=== PATIENT | female | born 1975 | race Caucasian/White ===

== ENCOUNTER 2017-04-09 18:41 | Emergency (ER) | payer BC ==
[~2017-04-09] VITALS: Ht 162.6 cm; Wt 91.4 kg
[~2017-04-09 18:41] MED LIST: IMODIUM MS REL1 EACH PO; ZOFRAN4 MG PO
[2017-04-09 19:48] LABS: HEMATOCRIT 40.8 % (36.0-46.0); MCH 28.9 PG (29.0-34.0); MCHC 34.3 G/DL (30.0-36.0); MCV 84.3 FL (83-99); MEAN PLAT.VOLUME 10.3 uM^3 (9.5-12.4); PLATELET COUNT 135 K/uL (156-360); RBC DIS.WIDTH-CV 13.1 % (11.8-14.6); RBC DIS.WIDTH-SD 40.4 % (39-53); RED BLOOD COUNT 4.84 M/uL (3.80-5.20); WHITE BLOOD COUNT 4.5 K/uL (4.1-10.2)
[2017-04-09 19:59] LABS: CHLORIDE 104 mEq/L (99-109); POTASSIUM 3.6 mEq/L (3.7-5.4); SODIUM 135 mEq/L (136-147)
[2017-04-09 20:01] LABS: GLUCOSE 96 mg/dL (70-99)
[2017-04-09 20:02] LABS: ANION GAP 12 MEQ/L (2-14)
[2017-04-09 20:03] LABS: TOTAL BILIRUBIN 0.9 mg/dL (0.0-1.0)
[2017-04-09 20:04] LABS: ALKALINE PHOSPHATASE 83 IU/L (3-129)
[2017-04-09 20:05] LABS: GFR ESTIMATE (CALCULATED) > 59 mL/min/
[2017-04-09 20:06] LABS: UREA NITROGEN (BUN) 8 mg/dL (9-23)
[2017-04-09 20:14] LABS: QUANTITATIVE HCG < 4.0 MIU/ML
[2017-04-09 21:25] LABS: ADD MIUA? YES; BILIRUBIN NEGATIVE; BLOOD SMALL; COLOR YELLOW ((YELLOW)); GLUCOSE (STRIP) NEGATIVE; KETONES 5; LEUKOCYTES NEGATIVE; NITRITE NEGATIVE; PROTEIN (STRIP) NEGATIVE; SPECIFIC GRAVITY 1.005 (1.000-1.030); UROBILINOGEN 0.2 MG/DL (0.2-1.0)
[2017-04-09 21:49] LABS: BACTERIA RARE /HPF; EPITHELIAL CELLS 1+ /HPF; MUCUS NONE SEEN /LPF; RED BLOOD CELLS 0-5 /HPF (0-5); UCUL ADDED? NO; WHITE BLOOD CELLS 0-5 /HPF (0-5)
[2017-04-09] MEDS ORDERED: AUGMENTIN875 MG PO (22:27)
[2017-04-09] MEDS ORDERED: MOTRIN600 MG PO (22:27)
[2017-04-09 23:23] VITALS: BP 124/67
== END 2017-04-09 23:26 | disposition home or self-care (01) ==
LOC: EME 18:41 → RME 18:41
PROVIDERS: Physician Assistant
DX: E86.0 Dehydration (principal); H66.93 Otitis media, unspecified, bilateral
CPT/HCPCS: 71020; 80053; 81003; 83605; 84702; 85027; 87040; 99281; 99285; J0696; J1885; J7030; J7050

== ENCOUNTER 2017-04-11 09:55 | Emergency (ER) | payer BC ==
[~2017-04-11] VITALS: Ht 170.2 cm; Wt 91.4 kg
[~2017-04-11 09:55] MED LIST changes: +AUGMENTIN875 MG PO; +MOTRIN600 MG PO
[2017-04-11 11:45] LABS: ADD MIUA? YES; BILIRUBIN NEGATIVE; BLOOD SMALL; COLOR YELLOW ((YELLOW)); GLUCOSE (STRIP) NEGATIVE; KETONES NEGATIVE; LEUKOCYTES NEGATIVE; NITRITE NEGATIVE; PROTEIN (STRIP) NEGATIVE; SPECIFIC GRAVITY 1.005 (1.000-1.030)
[2017-04-11 11:49] LABS: BACTERIA RARE /HPF; EPITHELIAL CELLS RARE /HPF; MUCUS TRACE /LPF; RED BLOOD CELLS 0-5 /HPF (0-5); UCUL ADDED? NO; WHITE BLOOD CELLS 0-5 /HPF (0-5)
[2017-04-11 11:53] VITALS: BP 139/83
[2017-04-11 12:45] LABS: HEMATOCRIT 37.6 % (36.0-46.0); MCV 85.3 FL (83-99); MEAN PLAT.VOLUME 10.8 uM^3 (9.5-12.4); PLATELET COUNT 124 K/uL (156-360); RBC DIS.WIDTH-CV 13.4 % (11.8-14.6); RED BLOOD COUNT 4.41 M/uL (3.80-5.20); WHITE BLOOD COUNT 4.8 K/uL (4.1-10.2)
[2017-04-11 12:59] LABS: CHLORIDE 105 mEq/L (99-109); SODIUM 139 mEq/L (136-147)
[2017-04-11 13:01] LABS: GLUCOSE 96 mg/dL (70-99)
[2017-04-11 13:02] LABS: ANION GAP 12 MEQ/L (2-14)
[2017-04-11 13:04] LABS: ALKALINE PHOSPHATASE 79 IU/L (3-129)
[2017-04-11 13:05] LABS: GFR ESTIMATE (CALCULATED) > 59 mL/min/
[2017-04-11 13:06] LABS: UREA NITROGEN (BUN) 10 mg/dL (9-23)
[2017-04-11 13:21] LABS: POTASSIUM 4.4 mEq/L (3.7-5.4); TOTAL BILIRUBIN 1.1 mg/dL (0.0-1.0)
[2017-04-11] MEDS ORDERED: DOXYCYCLINE HY100 MG PO (14:02)
[2017-04-11] MEDS ORDERED: TRAMADOL HCL50 MG PO (14:02)
== END 2017-04-11 14:26 | disposition home or self-care (01) ==
LOC: EME 09:55
PROVIDERS: Nurse Practitioner Family
DX: R51 Headache (principal); J30.2 Other seasonal allergic rhinitis; M54.5 Low back pain; H53.8 Other visual disturbances; R42 Dizziness and giddiness; Z20.818 Contact with and (suspected) exposure to other bacterial communicable diseases
CPT/HCPCS: 70450; 80053; 81003; 85027; 86618; 99281; 99285; J1885

== ENCOUNTER → 2017-09-07 | Outpatient (CLI) | payer BC ==
[~2017-09-07] MED LIST changes: +DOXYCYCLINE HY100 MG PO; +TRAMADOL HCL50 MG PO
== END | disposition home or self-care (01) ==
LOC: CDC
DX: I49.1 Atrial premature depolarization (principal); R94.31 Abnormal electrocardiogram [ECG] [EKG]
CPT/HCPCS: 93000